=== PATIENT | female | born 1960 | race Caucasian/White ===

== ENCOUNTER 2021-04-22 18:00 | Emergency (ER) | payer BC ==
[2021-04-22] MEDS ORDERED: Lidocaine 2% 5 ML SDV INJECT ONE ×2 (18:05→18:51)
[2021-04-22] MEDS ORDERED: Lidocaine 2% 5 ML SDV ONE (18:50)
[2021-04-22] MEDS ORDERED: Bacitracin/Neomycin/Polymyxin B Oint 28.4 GM Tube ONE (19:11)
[2021-04-22] MEDS ORDERED: Bacitracin/Neomycin/Polymyxin B Oint 28.4 GM Tube TOP ONE (19:12)
[2021-04-22 20:01] VITALS: BP 103/64; PULSE 58
[2021-04-22] MEDS ORDERED: Ketorolac 10 MG Tab PO ONE (20:16)
== END 2021-04-22 20:30 | disposition home or self-care (01) ==
LOC: KA.ED 18:00
DX: S61.421A Laceration with foreign body of right hand, initial encounter (principal); Z79.899 Other long term (current) drug therapy; Z79.01 Long term (current) use of anticoagulants; W26.8XXA Contact with other sharp object(s), not elsewhere classified, initial encounter
CPT/HCPCS: 12001; 73130-RT; 99283; 99283-25; A9270-GY